=== PATIENT | female | born 1970 | race Caucasian/White ===

== ENCOUNTER 2017-01-15 08:43 | Emergency (ER) | payer OTHER ==
[~2017-01-15] VITALS: Wt 77.1 kg
[~2017-01-15 08:43] MED LIST: AUGMENTIN 875 M1 TA1 PO; BLEPH-10 15 ML15 ML OP; CIPRO250 MG PO; DIFLUCAN150 MG PO; FLAGYL500 MG PO; PREVACID SOLUTA30 MG PO; VICODIN 500 MG-1 TAB PO; VICODIN ES 7501 TAB PO
[2017-01-15] MEDS ORDERED: SEROQUEL200 MG PO (08:49)
[2017-01-15] MEDS ORDERED: AMOXICILLIN500 M2 PO (09:22)
== END 2017-01-15 09:37 | disposition home or self-care (01) ==
LOC: ED 08:43
DX: J02.9 Acute pharyngitis, unspecified (principal); F17.200 Nicotine dependence, unspecified, uncomplicated; Z98.51 Tubal ligation status; Z90.49 Acquired absence of other specified parts of digestive tract